=== PATIENT | female | born 1980 | race Caucasian/White ===

== ENCOUNTER → 2017-11-27 10:48 | Outpatient (CLI) | payer BC, SELFPAY ==
--- NOTE | 2017-11-27 10:52 | DI.RAD.S_ITS ---
PROCEDURE: XR CERVICAL SPINE 4V OR 5V INDICATIONS: Cervical HNP with right upper extremity radiculopathy TECHNIQUE: 5 views of the cervical spine acquired. COMPARISON: None. FINDINGS: Bones: No fractures or dislocations to the C7 level. Oblique images demonstrate no bony foraminal stenoses. Loss of the normal cervical lordosis and there is minimal focal kyphosis at C4-C5. There is diffuse endplate spurring and minimal narrowing of the C4-C5 disc space. Moderate right C6-C7 bony foraminal narrowing Soft tissues: No prevertebral soft tissue swelling. IMPRESSION: Moderate right C6-C7 bony foraminal narrowing. Minimal focal kyphosis at C4-C5. Minimal C4-C5 disc degeneration. Dictated by: Star Bradley M.D. on 11/27/2017 at 13:21 Approved by: Star Bradley M.D. on 11/27/2017 at 13:24
== END ==
PROVIDERS: Visit Provider Physical Medicine & Rehabilitation
DX: M50.121 Cervical disc disorder at C4-C5 level with radiculopathy (principal); M40.292 Other kyphosis, cervical region; M48.02 Spinal stenosis, cervical region
CPT/HCPCS: 72050